=== PATIENT | female | born 1960 | race Caucasian/White ===

== ENCOUNTER 2017-04-19 19:13 | Emergency (ER) | payer BC ==
[2017-04-19 19:14] VITALS: BMI 25.5
[2017-04-19 19:25] VITALS: RESP 16; TEMP 98.3
--- NOTE | 2017-04-19 20:38 | ED PDOC ---
Arrival/HPI - General Chief Complaint: Trauma Time Seen by Provider: 04/19/17 20:08 Historian: Patient, Family - History of Present Illness Narrative History of Present Illness (Text): you were treated in the ED today for accidental trip/fall with bruising of the right frontal forehead/scalp with mild discomfort but no depression of the scalp and mild left sided neck pain without spinal pain and with mild teeth discomfort in the front which you already went to the dentist and didn't want further evaluation otherwise without any loss of consciousness/nausea/vomiting/ headache/dizziness/difficulty breathing/chest pain/abdomen pain/numbness/ tingling/loss of limb function/pain with urination. 04/19/17 20:39 Time/Duration: Other (12hrs) Past Medical History - Provider Review Nursing Documentation Reviewed: Yes - Travel History Have you recently traveled outside [place] w/in the past 3 mons?: No - Reproductive Menopause: Yes - Pulmonary Hx Respiratory Disorders: No - Neurological Hx Neurological Disorder: No - HEENT Hx HEENT Disorder: No - Renal Hx Renal Disorder: No - Endocrine/Metabolic Hx Endocrine Disorders: No - Hematological/Oncological Hx Blood Disorders: No - Integumentary Hx Dermatological Disorder: No - Musculoskeletal/Rheumatological Hx Musculoskeletal Disorders: Yes Hx Arthritis: Yes - Gastrointestinal Hx Gastrointestinal Disorders: No - Genitourinary/Gynecological Hx Genitourinary Disorders: No - Psychiatric Hx Psychophysiologic Disorder: No Hx Substance Use: No - Surgical History Hx Section: Yes Family/Social History - Physician Review Nursing Documentation Reviewed: Yes Family/Social History: No Known Family HX Smoking Status: Never Smoked Hx Alcohol Use: No Hx Substance Use: No Allergies/Home Meds Allergies/Adverse Reactions: Allergies No Known Allergies Allergy (Verified 04/19/17 19:20) Home Medications: Home Meds Medication Instructions Recorded Confirmed Fenofibrate,Micronized 1 cap PO DAILY 04/19/17 04/19/17 [Fenofibrate] Review of Systems - Review of Systems Constitutional: Normal Eyes: Normal ENT: Normal Respiratory: Normal Cardiovascular: Normal Gastrointestinal: Normal, Anorexia Musculoskeletal: Neck Pain Skin: Normal Neurological: Normal Endocrine: Normal Hemo/Lymphatic: Normal Psychiatric: Normal Physical Exam Vital Signs Reviewed: Yes Vital Signs Temp Pulse Resp BP Pulse Ox 04/19/17 19:21 98.3 F 72 16 130/83 96 Temperature: Afebrile Blood Pressure: Hypertensive Pulse: Regular Respiratory Rate: Normal Appearance: Positive for: Well-Appearing, Non-Toxic, Comfortable Pain Distress: None Mental Status: Positive for: Alert and Oriented X 3 - Systems Exam Head: Present: Tenderness, Contusion, Swelling, Ecchymosis, Other (right frontal forehead/scalp) Pupils: Present: PERRL Extroacular Muscles: Present: EOMI Conjunctiva: Present: Normal Ears: Present: Normal Mouth: Present: Moist Mucous Membranes Pharnyx: Present: Normal Nose (External): Present: Atraumatic Nose (Internal): Present: Normal Inspection Neck: Present: Normal Range of Motion Respiratory/Chest: Present: Clear to Auscultation, Good Air Exchange, Respiratory Distress Cardiovascular: Present: Regular Rate and Rhythm Abdomen: No: Tenderness, Distention, Normal Bowel Sounds, Peritoneal Signs, Rebound, Guarding, McBurney's Point Tender, Rovsing's Sign Present, Hernias, Feeding Tubes, Ostomy Tubes, Mass/Organomegaly, Scars, Other Upper Extremity: Present: Normal Inspection Lower Extremity: Present: Normal Inspection Neurological: Present: GCS=15, CN II-XII Intact, Speech Normal, Motor Func Grossly Intact Skin: Present: Warm, Dry, Other (see head) Psychiatric: Present: Alert, Oriented x 3, Normal Insight, Normal Concentration Medical Decision Making ED Course and Treatment: you were treated in the ED today for accidental trip/fall with bruising of the right frontal forehead/scalp with mild discomfort but no depression of the scalp and mild left sided neck pain without spinal pain and with mild teeth discomfort in the front which you already went to the dentist and didn't want further evaluation otherwise without any loss of consciousness/nausea/vomiting/ headache/dizziness/difficulty breathing/chest pain/abdomen pain/numbness/ tingling/loss of limb function/pain with urination. You were otherwise breathing easily, smiling with your sister, good strength/sensation, walking easily, clear lungs, no abdomen tenderness, no fever temp 98.3, stable heart rate 72, stable breathing rate 16, excellent oxygen level 96% room air, elevated blood pressure 130/83 which we recommend repeat in 2-3 days primary care office to determine further treatment, radiology CT head no acute, flexeril done in the ED with improvement, counselled to rest/heating pads and thus discharged home with sister. 1. Recommend tylenol for mild pain as directed. 2. Recommend flexeril as directed for muscle breakthrough pain and don 't work/drive/drink alcohol when using and your sister will give you a ride today. 3. Recommend follow-up primary care 2-3 days to review symptoms, referral to neurology for CT findings of possible dilated perivascular spaces versus chronic lacunar infacts about basal ganglia to ensure no complications. 4. Recommend have family monitor you today for alertness every 1-2 hours and no unusual drowsiness without nausea/vomiting/headache/dizziness or any medical condition for 24hrs or If any worsening pain, fever, chills, nausea, vomiting, difficulty breathing, numbness, loss of limb function, pain with urination or any medical condition at anytime then return to the ED. 04/19/17 20:45 04/19/17 21:47 - RAD Interpretation Radiology Orders: 04/19/17 20:34 HEAD W/O CONTRAST [CT] Stat Tipple Worker: Radiologist - Medication Orders Current Medication Orders: Discontinued Medications Cyclobenzaprine HCl (Flexeril) 10 mg PO STAT STA Stop: 04/19/17 20:35 Last Admin: 04/19/17 21:00 Dose: 10 mg Disposition/Present on Arrival - Present on Arrival Any Indicators Present on Arrival: No History of DVT/PE: No History of Uncontrolled Diabetes: No Urinary Catheter: No History of Decub. Ulcer: No History Surgical Site Infection Following: None - Disposition Have Diagnosis and Disposition been Completed?: Yes Diagnosis: Head injury Disposition: HOME/ ROUTINE Disposition Time: 21:48 Patient Plan: Discharge Condition: IMPROVED Additional Instructions: you were treated in the ED today for accidental trip/fall with bruising of the right frontal forehead/scalp with mild discomfort but no depression of the scalp and mild left sided neck pain without spinal pain and with mild teeth discomfort in the front which you already went to the dentist and didn't want further evaluation otherwise without any loss of consciousness/nausea/vomiting/ headache/dizziness/difficulty breathing/chest pain/abdomen pain/numbness/ tingling/loss of limb function/pain with urination. You were otherwise breathing easily, smiling with your sister, good strength/sensation, walking easily, clear lungs, no abdomen tenderness, no fever temp 98.3, stable heart rate 72, stable breathing rate 16, excellent oxygen level 96% room air, elevated blood pressure 130/83 which we recommend repeat in 2-3 days primary care office to determine further treatment, radiology CT head no acute, flexeril done in the ED with improvement, counselled to rest/heating pads and thus discharged home with sister. 1. Recommend tylenol for mild pain as directed. 2. Recommend flexeril as directed for muscle breakthrough pain and don 't work/drive/drink alcohol when using and your sister will give you a ride today. 3. Recommend follow-up primary care 2-3 days to review symptoms, referral to neurology for CT findings of possible dilated perivascular spaces versus chronic lacunar infacts about basal ganglia to ensure no complications. 4. Recommend have family monitor you today for alertness every 1-2 hours and no unusual drowsiness without nausea/vomiting/headache/dizziness or any medical condition for 24hrs or If any worsening pain, fever, chills, nausea, vomiting, difficulty breathing, numbness, loss of limb function, pain with urination or any medical condition at anytime then return to the ED. Prescriptions: Cyclobenzaprine [Cyclobenzaprine HCl] 10 mg PO Q8 PRN #12 tab PRN Reason: muscle breakthrough pain Referrals: Nayeli Krueger MD [Primary Care Provider] - Follow up with primary Forms: [employer]ment (Lao)
--- NOTE | 2017-04-19 21:37 | CT ---
EXAM: CT Head Without Intravenous Contrast CLINICAL HISTORY: 56 years old, female; Injury or trauma; Fall; Initial encounter; Blunt trauma (contusions or hematomas); Without loss of consciousness; Injury date: 04-19-2017; Injury details: Pt has a bump on right side of forehead; Additional info: 56yo, fall head injury, scalp/bruising TECHNIQUE: Axial computed tomography images of the head/brain without intravenous contrast. All CT scans at this facility use one or more dose reduction techniques, viz.: automated exposure control; ma/kV adjustment per patient size (including targeted exams where dose is matched to indication; i.e. head); or iterative reconstruction technique. COMPARISON: No relevant prior studies available. FINDINGS: Brain: No intracranial hemorrhage. No mass. Dilated perivascular spaces vs chronic lacunar infarcts about basal ganglia. No edema. Ventricles: No hydrocephalus. Bones/joints: No acute fracture. Soft tissues: Mild scalp swelling. Sinuses: No acute sinusitis. Mastoid air cells: No mastoid effusion. Orbits: Unremarkable as visualized. IMPRESSION: 1. No intracranial hemorrhage. 2. Incidental/non-acute findings are described above.
[2017-04-20 01:33] VITALS: BP 127/80; PULSE 74; O2SAT 98
== END 2017-04-19 22:33 | disposition home or self-care (01) ==
LOC: ED 19:13
DX: S09.90XA Unspecified injury of head, initial encounter (principal); W01.0XXA Fall on same level from slipping, tripping and stumbling without subsequent striking against object, initial encounter